=== PATIENT | male | born 1985 | race Caucasian/White ===

== ENCOUNTER 2018-06-05 18:41 | Emergency (ER) | payer MEDICAID ==
[~2018-06-05] VITALS: Ht 185.4 cm; Wt 84.5 kg
[2018-06-05 18:48] VITALS: BP 123/85
[2018-06-05] MEDS ORDERED: PROPARACAINE OPHTH 0.5%, 15ML ONE (19:03)
[2018-06-05] MEDS ORDERED: CEPHALEXIN 500 MG CAPSULE ONE (19:18)
[2018-06-05] MEDS ORDERED: SULFAMETH./TRIMETHOPRIM DS 800MG/160MG TABLET ONE (19:18)
[2018-06-05] MEDS ORDERED: CEPHALEXIN 500 MG CAPSULE PO ONE (19:30)
[2018-06-05] MEDS ORDERED: SULFAMETH./TRIMETHOPRIM DS 800MG/160MG TABLET PO ONE (19:30)
== END 2018-06-05 19:37 | disposition home or self-care (01) ==
LOC: ED 19:27
DX: H00.021 Hordeolum internum right upper eyelid (principal); L03.213 Periorbital cellulitis; F17.200 Nicotine dependence, unspecified, uncomplicated
CPT/HCPCS: 99283